=== PATIENT | female | born 1955 | race African-American/Black ===

== ENCOUNTER → 2017-02-24 | Outpatient (CLI) | payer BC ==
[~2017-02-24] MED LIST: METOPROLOL SUCC25 MG PO; MULTIPLE VITAMI1 T10 PO; NAPROSYN500 MG PO; VITAMIN D50000 UNIT PO; VOLTAREN50 MG PO
--- NOTE | ~2017-02-24 | CR181 ---
[facility] A Service of [facility] RADIOLOGY TEXT RESULTS PATIENT: CELESTE HARRELL LOCATION: [facility] : 53 UNIT #: [id number] AGE: [address]: TEETEE KEMP APRN SEX: F ORDER DR: [id number] [facility] [address] [facility] [place] [facility] [place], [place] [address] [id number] O MR#: [id number] Acc #: [id number] NAME: CELESTE HARRELL : 1955 SEX: F STUDY DATE/TIME: 02/24/2017 9:48 UNIT: [facility] ROOM: STUDY DESCRIPTION: CR Lumbar Spine 2 or 3 Views Attending Physician: Teetee Kemp Aprn Referring Physician: Teetee Kemp Aprn Ordering Physician: Teetee Kemp Aprn Primary Care Physician: Teetee Kemp Aprn MEDICAL IMAGING REPORT This report is preliminary unless electronic signature is present EXAM Lumbar spine 3 views, 02/24/2017 COMPARISON Previous lumbar spine series, 01/08/2014 CLINICAL HISTORY 2-week history of upper and lower back pain. FINDINGS There is a levoscoliosis but no keven or retrolisthesis. There is minimal discogenic change but moderate facet degeneration. There is no fracture or bone destruction. IMPRESSION Scoliosis and degenerative change primarily consisting of facet arthropathy, no definite acute abnormality. Lesser discogenic change particularly at the thoracolumbar junction and lower thoracic spine. Dictated by... Emigdio Gallagher M.D. THIS IS AN ELECTRONICALLY VERIFIED REPORT Emigdio Gallagher M.D. at 02/25/2017 3:56 PM ZACHARIAH/moses TD: 02/25/2017 08:53 JOB #: [id number] MEDICAL IMAGING REPORT Page 1 of 1 COPY
--- NOTE | ~2017-02-24 | CR242 ---
[facility] A Service of [facility] RADIOLOGY TEXT RESULTS PATIENT: CELESTE HARRELL LOCATION: [facility] : 53 UNIT #: [id number] AGE: [address]: TEETEE KEMP APRN SEX: F ORDER DR: [id number] [facility] [address] [place], [place] [address] [id number] O MR#: [id number] Acc #: [id number] NAME: CELESTE HARRELL : 1955 SEX: F STUDY DATE/TIME: 02/24/2017 9:46 UNIT: [facility] ROOM: STUDY DESCRIPTION: CR Thoracic Spine 2 Views Attending Physician: Teetee Kemp Aprn Referring Physician: Teetee Kemp Aprn Ordering Physician: Teetee Kemp Aprn Primary Care Physician: Teetee Kemp Aprn MEDICAL IMAGING REPORT This report is preliminary unless electronic signature is present EXAM Thoracic spine 3 views 02/24/2017 COMPARISON None. HISTORY 2 week history of upper and lower back pain. FINDINGS Slight scoliosis. There is discogenic change but no evidence of fracture or acute abnormality. Dictated by... Emigdio Gallagher M.D. THIS IS AN ELECTRONICALLY VERIFIED REPORT Emigdio Gallagher M.D. at 02/25/2017 3:56 PM ZACHARIAH/ata TD: 02/25/2017 08:49 JOB #: [id number] MEDICAL IMAGING REPORT Page 1 of 1 COPY
== END | disposition home or self-care (01) ==
LOC: CRAD 09:22
DX: M54.5 Low back pain (principal); M54.6 Pain in thoracic spine; M41.84 Other forms of scoliosis, thoracic region; M47.894 Other spondylosis, thoracic region
CPT/HCPCS: 72070; 72100

== ENCOUNTER → 2017-06-25 | Outpatient (CLI) | payer BC ==
--- NOTE | ~2017-06-25 | CR170 ---
[facility] A Service of [facility] RADIOLOGY TEXT RESULTS PATIENT: CELESTE HARRELL LOCATION: [facility] : 53 UNIT #: [id number] AGE: [address]: SABINA CAM APRN SEX: F ORDER DR: [id number] [facility] [address] [place], [place] [address] [id number] O MR#: [id number] Acc #: [id number] NAME: CELESTE HARRELL : 1955 SEX: F STUDY DATE/TIME: 06/25/2017 UNIT: [facility] ROOM: STUDY DESCRIPTION: CR Knee 2 Views Rt Attending Physician: Sabina Cam Aprn Referring Physician: Sabina Cam Aprn Ordering Physician: Sabina Cam Aprn Primary Care Physician: Teetee Handy Aprn MEDICAL IMAGING REPORT This report is preliminary unless electronic signature is present EXAM Right knee 06/25/2017 HISTORY 62-year-old with right knee pain for 1 year. No specific injury. COMPARISON Right knee, 01/08/2014. FINDINGS Two views of the right knee demonstrate no acute fracture or dislocation. No joint effusion. Joint spaces are adequately maintained. Soft tissues are unremarkable. IMPRESSION Unremarkable right knee. Dictated by... Marcio Aguila M.D. THIS IS AN ELECTRONICALLY VERIFIED REPORT Marcio Aguila M.D. at 06/28/2017 2:07 PM ELO/etienne TD: 06/26/2017 05:27 JOB #: [id number] MEDICAL IMAGING REPORT Page 1 of 1 COPY
--- NOTE | ~2017-06-25 | CR169 ---
[facility] A Service of [facility] RADIOLOGY TEXT RESULTS PATIENT: CELESTE HARRELL LOCATION: [facility] : 53 UNIT #: [id number] AGE: [address]: SABINA CAM APRN SEX: F ORDER DR: [id number] [facility] [address] [place], [place] [address] [id number] O MR#: [id number] Acc #: [id number] NAME: CELESTE HARRELL : 1955 SEX: F STUDY DATE/TIME: 06/25/2017 13:20 UNIT: [facility] ROOM: STUDY DESCRIPTION: CR Knee 2 Views Lt Attending Physician: Sabina Cam Aprn Referring Physician: Sabina Cam Aprn Ordering Physician: Sabina Cam Aprn Primary Care Physician: Teetee Handy Aprn MEDICAL IMAGING REPORT This report is preliminary unless electronic signature is present EXAM Left knee 06/25/2017 HISTORY 62-year-old female with left knee pain for 1 year. No specific injury. COMPARISON Left knee 01/08/2014 FINDINGS 2 views of the left knee demonstrate no acute fracture or dislocation. No joint effusion. Joint spaces are within normal limits. Soft tissues are unremarkable. IMPRESSION Unremarkable left knee Dictated by... Marcio Aguila M.D. THIS IS AN ELECTRONICALLY VERIFIED REPORT Marcio Aguila M.D. at 06/28/2017 2:07 PM ELO/etienne TD: 06/26/2017 05:44 JOB #: [id number] MEDICAL IMAGING REPORT Page 1 of 1 COPY
== END | disposition home or self-care (01) ==
LOC: CRAD 13:00
DX: M25.561 Pain in right knee (principal); M25.562 Pain in left knee
CPT/HCPCS: 73560